=== PATIENT | female | born 1935 | race Caucasian/White ===

== ENCOUNTER 2023-07-20 15:07 | Inpatient (IN) | payer MEDICARE, BC, SELFPAY ==
--- NOTE | 2023-07-20 13:08 | W.PN.CARDCBS ---
Today's Communication / Plan
-
C today
Impression / Plan
-
This is a summary, please see scanned H&P
PCP: Geovani Fam MD
CDY: None (new to Dr. Garcia)
88 yo WF h/o breast cancer post L mastectomy/chemo at age 52, not currently on any medications. She presented to ER on 07/16 with progressive dyspnea and fatigue over the past month, CTA neg for PE but b/l pleural effusions and BNP 8000. Troponin
low level 23, 27, 28 most likely related to CHF exacerbation. She had Echo with EF 20-25% and severe MR and mild RV dysfunction. She was having runs of Atrial tachycardia initially started on digoxin but switched to Amiodarone 200mg bid. She was
initiated on carvedilol, her bp has been too low (required ICU for dobutamine) to add any MARLEN/ARB and SGLT2/Entresto are cost prohibitive. In addition she had mild JENARO and elevated LFT's which have improved with diuresis. She is being transferred
today for [facility]. Plan is to return to [facility] after cath.
07/18/23 ECHO - LVEF 20-25%, mildly decreased RV systolic function, severe MR, mild AR
Impression/Plan:
#Acute on chronic HFrEF - L/R cath today to rule out severe ischemic heart disease, continue carvedilol, bp too low to add ACEI/ARB
cost prohibitive for SGLT2 inhibitor or Entresto, continue gentle diuresis switched to PO today, currently on RA
daily wt, strict I/O, HF education
#Severe MR - L/R cath today, ? surgical eval for MVR vs MitraClip,
may need PEYTON or possibly repeat TTE after diuresis and remains in SR, MR may be better
#Paroxysmal Atrial tachycardia - Continue Amiodarone loading 200mg bid, BB, will discuss need for OAC
[id number] =4, TSH wnl
#JENARO - Cr 1.26 on arrival, trending down 1.1 today, will monitor post cath
#Elevated transaminases possibly secondary to hepatic congestion - AST 64, ALT 75 on 07/16, continued to trend down with diuresis, trend
#Breast Cancer - prior L mastectomy and chemo, stable
If cath clean plan to transfer back to [facility]
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
Subjective
Date of Service: July 20, 2023
no cp, mild dyspnea with walking from stretcher to bed
Physical Exam
Physical Exam
NAD< AOx3
S1, S2, RRR, II/ SARAH at apex
fine bibasilar rales
SNTND bsx4
No LE edema
R UA MIDLINE
[2023-07-20 15:23] VITALS: BMI 27.3
[2023-07-20 15:24] VITALS: BP 106/82
[2023-07-20 17:06] VITALS: BP 123/66
--- NOTE | 2023-07-20 17:09 | ITS.CL.CATH ---
Tube Blower - Catheterization
Cardiac Catheterization
Procedure Report:
Cardiac Catheterization/PCI Report
Patient was correctly identified and procedure time out was taken. Informed consent signed. Correct site and side were identified and marked, if applicable. Equipment at bedside. Correct patient position. Relevant images and results reviewed prior
to procedure. Patient history and medications reviewed. Informed consent process consisted of informing the patient of risks of the procedure including, but not limited to infection, bleeding, , myocardial infarction, stroke, pericardial
tamponade, need for further procedures. Benefits of the procedure include relief of angina, improvement of heart function, improvement of quality of life. The possibility of needing transfer to higher level of care was also discussed. After the
explanation of risks and benefits, the patient agreed to proceed.
Date of Procedure: [07/20/2023]
Primary Care Physician: Unknown
Referring Physician: [Dr. Vance Lopez]
Procedures performed:
1: Left heart cath/coronary angiography
2: [Thoracic aortogram]
3: Conscious sedation
INDICATION: Severe mitral valve regurgitation, cardiomyopathy.
ACCESS: Eber's test was performed prior to the procedure and the patient was found to be suitable for right radial access. The patient was prepped and draped in usual sterile fashion. A 6 Tamazight sheath was placed in the right radial artery using
the Seldinger over the wire technique. A total of 4000 units of heparin was given for anticoagulation. A cocktail of 2 mg of verapamil and 200 mcg of nitroglycerin was administered preprocedure.
HEMODYNAMIC FINDINGS (mmHg):
LV(s/d,EDP): 107/7 with an LVEDP of 26
Ao(s/d,m): 100/60 with a mean of 73.
ANGIOGRAPHIC FINDINGS:
Single-plane Left Ventriculography in LOWERY Projection: [Left ventriculography was not performed noted to conserve IV dye used.
Using a JR4 catheter, the aortic valve was crossed into the left ventricle. Pressures were recorded and pullback was performed.]
Coronary Angiography: Using a JL 4 catheter, left system was engaged. Left system was imaged in multiple projections. Using an AR 1 catheter, right coronary artery was engaged. Right coronary artery was imaged in multiple projections.
Dominance: Right dominant.
Left Main: Normal artery. Normal vessel. Mild luminal regularities.
Left Anterior Descending: Large vessel. Wraps around the apex. There are several diagonals present, but the first diagonal is a large distal 50% ostial stenosis. Minor luminal irregularities throughout the vessel.
Left Circumflex: Large size vessel. Mild luminal regularities present.
Right Coronary: Normal vessel. Minor luminal irregularities are present.
Other angiography:
1: In order to better understand the height of the right coronary artery, the thoracic aortography was performed. An AR-1 catheter was placed distal to the aortic valve and an injection was performed. Ostium of the RCA was then located.
DAP (cGy-cm2): 30.0772
Flouroscopy Time (min): 6.1 minutes
Radiation Dose: 422 mGy
Contrast Used: 60 cc
Complications: None
Closure device: None. A TR band was applied for hemostasis at the right wrist.
ASSESSMENT:
1: Nonobstructive coronary artery disease
2: Moderately elevated LVEDP at 26 mmHg.
CONCLUSIONS and RECOMMENDATIONS:
1: Continue aggressive medical therapy.
2: We will continue the workup for possible MitraClip at [facility].
Conscious Sedation:
I was present with the patient for the duration of the moderate sedation and supervised staff who monitored the patient for the entire procedure. Details of sedation are entered by the nurse administering the sedation and details of the patient's
monitoring status are entered by a sign monitor role staff member into the [facility] laboratory electronic record system. Please see the nursing flow sheets for documentation of the name of the independent trained observer, and intra-service start and
end times.
I administered moderate sedation throughout this 21 minute procedure. An independent trained observer administered medications at my direction, and monitored, along with the monitor role staff member, the patient's level of consciousness and
physiological status throughout.
[2023-07-20 17:21] VITALS: BP 111/72
[2023-07-20 17:36] VITALS: BP 107/88
[2023-07-20 17:51] VITALS: BP 122/81
[2023-07-20 18:06] VITALS: BP 138/79
== END 2023-07-20 19:04 | disposition short-term general hospital (02) | DRG 287 ==
LOC: CATH-IN 15:07
PROVIDERS: Internal Medicine Cardiovascular Disease; ADMITTING PHYSICIAN Internal Medicine Cardiovascular Disease; FAMILY PHYSICIAN Family Medicine
PROC: B2151ZZ Fluoroscopy of Left Heart using Low Osmolar Contrast (ICD-10-PCS; 2023-07-20)
PROC: B2111ZZ Fluoroscopy of Multiple Coronary Arteries using Low Osmolar Contrast (ICD-10-PCS; 2023-07-20)
PROC: 4A023N7 Measurement of Cardiac Sampling and Pressure, Left Heart, Percutaneous Approach (ICD-10-PCS; 2023-07-20)
DX: I25.10 Atherosclerotic heart disease of native coronary artery without angina pectoris (principal); I34.0 Nonrheumatic mitral (valve) insufficiency; I42.9 Cardiomyopathy, unspecified
CPT/HCPCS: 93458; 93567; C1894; Q9967